=== PATIENT | female | born 1980 | race Caucasian/White ===

== ENCOUNTER 2024-08-24 10:58 | Observation (INO) | payer BC, OTHER ==
[~2024-08-24] VITALS: Ht 157.5 cm; Wt 78.0 kg
[2024-08-24] VITALS (7 sets, daily range): BP systolic 134–164; BP diastolic 88–96; TEMP 97.1–98.2; O2SAT 95–97
[~2024-08-24 10:58] MED LIST: ADDE30CA3 PO; BUPR-69 PO; BUPR75TA5 PO; OMEG10002 PO; RA M500C PO; SPIR100T3 PO; VENL75TA2 PO; XALA0.007 OU
[2024-08-24] MEDS ORDERED: LR 1,000 ML IV SCH (11:30)
[2024-08-24] MEDS ORDERED: LIDOCAINE 2% 100MG/5ML SDV (FOR ANES.) As Ordered ONE (12:26)
[2024-08-24] MEDS ORDERED: fentaNYL 100 MCG/2 ML INJECTION As Ordered ONE (12:26)
[2024-08-24] MEDS ORDERED: ROCURONIUM BROMIDE 50MG/5ML VIAL As Ordered ONE (12:26)
[2024-08-24] MEDS ORDERED: propofoL 200 MG/20 ML VIAL As Ordered ONE (12:26)
[2024-08-24] MEDS ORDERED: MIDAZOLAM INJ 2MG/2ML VIAL As Ordered ONE (12:26)
[2024-08-24] MEDS ORDERED: ONDANSETRON 4MG 2ML VIAL As Ordered ONE (12:28)
[2024-08-24] MEDS ORDERED: REMIFENTANIL 1MG 3ML VIAL As Ordered ONE (13:08)
[2024-08-24] MEDS: COCAINE 4% 4ML NASAL SOLUTION BTL As Ordered ONE (13:32)
[2024-08-24] MEDS ORDERED: ACETAMINOPHEN 1000MG/100ML IV BAG As Ordered ONE (13:40)
[2024-08-24] MEDS ORDERED: METOCLOPRAMIDE INJ 10MG/2ML VIAL As Ordered ONE (13:49)
[2024-08-24] MEDS ORDERED: SUGAMMADEX SODIUM 500 MG/5 ML VIAL (BRIDION) As Ordered ONE (13:49)
[2024-08-24] MEDS: LIDOCAINE W/EPINEPHRINE 1% 20ML VIAL As Ordered ONE (14:04)
[2024-08-24] MEDS: OXYMETAZOLINE 0.05% NASAL SPRAY As Ordered ONE (14:04)
[2024-08-24] MEDS ORDERED: fentaNYL 100 MCG/2 ML INJECTION IV PRN (14:10)
[2024-08-24] MEDS: ONDANSETRON 4MG 2ML VIAL IV PRN (14:40)
[2024-08-24] MEDS ORDERED: SENOKOT S TAB PO PRN (15:15)
[2024-08-24] MEDS ORDERED: ACETAMINOPHEN 325 MG TAB PO PRN (15:15)
[2024-08-24] MEDS ORDERED: MOM 30ML SUSPENSION UDC PO PRN (15:15)
[2024-08-24] MEDS: HYDROMORPHONE HCL 0.5 MG/ 0.5 ML SYRINGE IV PRN (15:30)
[2024-08-24 15:58] LABS: BASO % 0.2 % (0.0-1.0); EOS % 0.2 % (0.0-3.0); HEMATOCRIT 33.5 % (36.0-47.0); HEMOGLOBIN 11.2 g/dl (12.0-15.5); LYMPH # 0.5 10^3/uL (1.5-5.0); LYMPH % 5.2 % (24.0-44.0); MEAN CORPUSCULAR HEMOGLOBIN 29.5 pg (27.0-33.0); MEAN CORPUSCULAR HGB CONC 33.4 g/dl (32.0-36.5); MEAN CORPUSCULAR VOLUME 88.2 fl (80.0-96.0); MONO # 0.2 10^3/uL (0.0-0.8); MONO % 2.3 % (2.0-8.0); NEUTROPHILS # 8.5 10^3/uL (1.5-8.5); NEUTROPHILS % 91.7 % (36.0-66.0); PLATELET COUNT, AUTOMATED 275 10^3/uL (150-450); WHITE BLOOD COUNT 9.3 10^3/uL (4.0-10.0)
[2024-08-24 16:09] LABS: INR 1.07; PARTIAL THROMBOPLASTIN TIME 29.4 SECONDS (24.8-34.2); PROTHROMBIN TIME 14.2 SECONDS (12.5-14.5)
[2024-08-24] MEDS ORDERED: RA M10TA PO (16:21)
[2024-08-24 16:22] LABS: ALBUMIN 3.8 G/DL (3.2-5.2); ALKALINE PHOSPHATASE 83 U/L (35-104); ALT/SGPT 33 U/L (7.0-40); AST/SGOT 61 U/L (<34); BILIRUBIN,TOTAL 0.4 MG/DL (0.3-1.2); BLOOD UREA NITROGEN 11 MG/DL (9-23); CALCIUM LEVEL 8.4 MG/DL (8.5-10.1); CARBON DIOXIDE LEVEL 26 MMOL/L (20-31); CHLORIDE LEVEL 105 MMOL/L (98-107); CREATININE FOR GFR 0.66 MG/DL (0.55-1.30); GLOMERULAR FILTRATION RATE > 60.0 (>58); GLUCOSE, FASTING 104 MG/DL (60-100); POTASSIUM SERUM 4.1 MMOL/L (3.5-5.1); SODIUM LEVEL 139 MMOL/L (136-145); TOTAL PROTEIN 6.5 G/DL (5.7-8.2)
[2024-08-24] MEDS: LR 1,000 ML IV SCH (16:56)
[2024-08-24] MEDS: HYDROcodone/APAP LIQUID 7.5-325MG 15ML UDC (LORTAB ELIXIR) PO PRN (16:58)
[2024-08-24] MEDS ORDERED: ACET-907 PO (17:08)
[2024-08-24] MEDS ORDERED: HOME MED LIST COMPLETE! XX SCH (17:10)
[2024-08-24] MEDS: SPIRONOLACTONE 50 MG TAB PO SCH (18:36)
[2024-08-24] MEDS: OXYMETAZOLINE 0.05% NASAL SPRAY PRN (18:36)
[2024-08-24] MEDS: HYDROMORPHONE HCL 0.5 MG/ 0.5 ML SYRINGE IV ONE (20:15)
[2024-08-24] MEDS: LATANOPROST 0.005% OPHTH SOLN 2.5 ML OU SCH (20:16)
[2024-08-24] MEDS: cloNIDine 0.1MG TABLET PO ONE (22:00)
[2024-08-24] MEDS: VENLAFAXINE 37.5 MG TAB PO SCH (22:01)
[2024-08-25] VITALS: BP 156/84; TEMP 97.3; O2SAT 96
[2024-08-25 04:00] VITALS: BP 143/87; TEMP 97.6; O2SAT 98
[2024-08-25 08:22] LABS: BASO % 0.2 % (0.0-1.0); EOS % 0.2 % (0.0-3.0); HEMATOCRIT 33.4 % (36.0-47.0); HEMOGLOBIN 11.3 g/dl (12.0-15.5); LYMPH # 1.2 10^3/uL (1.5-5.0); LYMPH % 10.4 % (24.0-44.0); MEAN CORPUSCULAR HEMOGLOBIN 29.7 pg (27.0-33.0); MEAN CORPUSCULAR HGB CONC 33.8 g/dl (32.0-36.5); MEAN CORPUSCULAR VOLUME 87.7 fl (80.0-96.0); MONO # 0.8 10^3/uL (0.0-0.8); MONO % 6.4 % (2.0-8.0); NEUTROPHILS # 9.8 10^3/uL (1.5-8.5); NEUTROPHILS % 82.3 % (36.0-66.0); PLATELET COUNT, AUTOMATED 296 10^3/uL (150-450); RED BLOOD COUNT 3.81 10^6/uL (4.00-5.40); WHITE BLOOD COUNT 11.9 10^3/uL (4.0-10.0)
[2024-08-25 08:56] LABS: BLOOD UREA NITROGEN 5 MG/DL (9-23); CARBON DIOXIDE LEVEL 28 MMOL/L (20-31); CHLORIDE LEVEL 106 MMOL/L (98-107); CREATININE FOR GFR 0.59 MG/DL (0.55-1.30); GLOMERULAR FILTRATION RATE > 60.0 (>58); GLUCOSE, FASTING 101 MG/DL (60-100); SODIUM LEVEL 141 MMOL/L (136-145)
[2024-08-25 09:00] VITALS: BP 149/81; TEMP 97.4; O2SAT 96
[2024-08-25] MEDS: lisinopriL 5 MG TAB PO SCH (09:18)
[2024-08-25 09:19] VITALS: BP 149/81
[2024-08-25] MEDS: VENLAFAXINE 37.5 MG TAB PO SCH (09:20)
[2024-08-25] MEDS: MORPHINE 2 MG/ML 1ML VIAL IV ONE (11:21)
[2024-08-25] MEDS: ONDANSETRON 4MG 2ML VIAL IV PRN (11:39)
[2024-08-25 13:00] VITALS: BP 117/70; TEMP 97; O2SAT 98
[2024-08-25] MEDS ORDERED: LISI5TAB11 PO (13:21)
[2024-08-25] MEDS ORDERED: AMLO1TAB25 PO (13:21)
[2024-08-25] MEDS ORDERED: NORV5TAB PO (13:39)
== END 2024-08-25 15:10 | disposition home or self-care (01) ==
LOC: M SDC 10:58 → M RR INP 10:59 → M PED 16:10
PROVIDERS: ADMIT General Practice; ATTEND Internal Medicine
DX: J34.2 Deviated nasal septum (principal); J34.3 Hypertrophy of nasal turbinates; J95.830 Postprocedural hemorrhage of a respiratory system organ or structure following a respiratory system procedure; F90.9 Attention-deficit hyperactivity disorder, unspecified type; F41.9 Anxiety disorder, unspecified; F32.A Depression, unspecified; I16.0 Hypertensive urgency; Z90.49 Acquired absence of other specified parts of digestive tract; Z98.84 Bariatric surgery status; Z98.890 Other specified postprocedural states; Z82.49 Family history of ischemic heart disease and other diseases of the circulatory system; Z83.2 Family history of diseases of the blood and blood-forming organs and certain disorders involving the immune mechanism; Z88.5 Allergy status to narcotic agent; Z91.048 Other nonmedicinal substance allergy status; Z88.8 Allergy status to other drugs, medicaments and biological substances; Z79.899 Other long term (current) drug therapy
CPT/HCPCS: 30140; 30520; 36415; 80048; 80053; 81025; 85025; 85610; 85730; 96361; 96374; 96375; C9143; J0131; J1100; J1171; J2250; J2405; J2765; J3010